=== PATIENT | male | born 1950 | race Caucasian/White ===

== ENCOUNTER → 2021-07-09 | Outpatient (CLI) | payer BC ==
--- NOTE | 2021-07-09 10:50 | REP ---
INDICATION: LUNG CANCER SCREENING COMPARISON: None. TECHNIQUE: Axial noncontrast images from the thoracic inlet to the upper abdomen using low-dose lung screening technique (LDCT). 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 There is no defined 7 mm nodular density in the posterior aspect of the right upper lobe (series 201; images 26-30). No further acute consolidation, effusion, or pneumothorax. Tracheobronchial tree is patent. Mediastinum is incompletely evaluated due to technique although few small mediastinal lymph nodes are suspected. IMPRESSION: Lung rads category 3. Six-month follow-up CT evaluation is recommended. <Electronically signed by Gilson Alvarenga > 07/09/21 1045
== END ==
LOC: M RAD 10:01
PROVIDERS: ATTEND Internal Medicine
DX: Z12.2 Encounter for screening for malignant neoplasm of respiratory organs (principal)

== ENCOUNTER → 2024-04-06 | Outpatient (REF) | payer BC ==
[2024-04-06 14:05] LABS: PERCENT SATURATION 50.7 % (19.7-50.0)
[2024-04-06 14:08] LABS: FERRITIN 274.4 NG/ML (10.5-307.3)
== END ==
LOC: M LAB REF 13:01
PROVIDERS: ATTEND Physician Assistant Medical
DX: Z01.818 Encounter for other preprocedural examination (principal); M25.551 Pain in right hip; M17.11 Unilateral primary osteoarthritis, right knee